=== PATIENT | male | born 1960 | race Caucasian/White ===

== ENCOUNTER 2023-10-21 19:48 | Emergency (ER) | payer SELFPAY ==
[~2023-10-21] VITALS: Ht 167.6 cm; Wt 79.3 kg
[2023-10-21 19:51] VITALS: TEMP 98.6; O2SAT 98
[2023-10-21 21:58] VITALS: BP 133/80; PULSE 88; RESP 18
== END 2023-10-21 21:59 | disposition home or self-care (01) ==
LOC: ER 19:48
DX: D17.22 Benign lipomatous neoplasm of skin and subcutaneous tissue of left arm (principal)
CPT/HCPCS: 99283